=== PATIENT | male | born 1995 | race Caucasian/White ===

== ENCOUNTER 2018-06-09 12:11 | Emergency (ER) | payer BC, MEDICAID ==
[2018-06-09 13:13] VITALS: BP 131/80
[2018-06-09 14:04] LABS: Influenza A Molecular NEGATIVE (Negative); Influenza B Molecular NEGATIVE (Negative)
--- NOTE | 2018-06-09 15:47 | ED ---
Influenza-Like Illness - HPI Summary HPI Summary: 23-year-old male smoker presents with 4 days of cough, congestion, fever. He reports subjective fever and nonproductive cough. He has had body aches and chills. No other family members have been ill but one coworker had similar symptoms. He reports using a vape and denies any shortness of breath. He did not receive a flu vaccine. - History of Current Complaint Chief Complaint: UCGeneralIllness Time Seen by Provider: 06/09/18 14:33 Hx Obtained From: Patient - Allergy/Home Medications Allergies/Adverse Reactions: Allergies Allergy/AdvReac Type Severity Reaction Status Date / Time No Known Allergies Allergy Verified 06/09/18 13:14 PMH/Surg Hx/FS Hx/Imm Hx Previously Healthy: Yes Endocrine/Hematology History: Denies: Hx Diabetes, Hx Thyroid Disease Cardiovascular History: Denies: Hx Hypertension Respiratory History: Denies: Hx Asthma, Hx Chronic Obstructive Pulmonary Disease (COPD) GI History: Denies: Hx Ulcer Infectious Disease History: No Infectious Disease History: Denies: Hx Clostridium Difficile, Hx Hepatitis, Hx Human Immunodeficiency Virus (HIV), History Other Infectious Disease, Traveled Outside the in Last 30 Days - Family History Known Family History: Positive: Diabetes, Other - child had coxsackie virus last week - Social History Occupation: Employed Full-time Alcohol Use: Occasionally Substance Use Type: Reports: None Hx Tobacco Use: Yes - vape Smoking Status (MU): Former Smoker Type: Cigarettes, Smokeless Tobacco Amount Used/How Often: 1/2 PPD, 1/3 can per day Have You Smoked in the Last Year: Yes Review of Systems Positive: Fever, Chills Eyes: Negative Positive: Sore Throat, Nasal Discharge. Negative: Ear Ache Cardiovascular: Negative Positive: Cough. Negative: Shortness Of Breath Negative: Abdominal Pain, Vomiting All Other Systems Reviewed And Are Negative: Yes Physical Exam Triage Information Reviewed: Yes Vital Signs On Initial Exam: Initial Vitals Temp Pulse Resp BP Pulse Ox 98.8 F 82 18 131/80 100 06/09/18 13:10 06/09/18 13:10 06/09/18 13:10 06/09/18 13:10 06/09/18 13:10 Vital Signs Reviewed: Yes Appearance: Positive: Well-Appearing, No Pain Distress, Well-Nourished Skin: Positive: Warm, Skin Color Reflects Adequate Perfusion, Dry Eyes: Positive: EOMI ENT: Positive: Pharyngeal erythema, Nasal drainage, TMs normal. Negative: Tonsillar swelling, Tonsillar exudate, Sinus tenderness Neck: Positive: Supple, Nontender. Negative: Nuchal Rigidity Respiratory/Lung Sounds: Positive: Clear to Auscultation Cardiovascular: Positive: RRR Abdomen Description: Positive: Nontender, Soft Musculoskeletal: Positive: Normal, Strength/ROM Intact Neurological: Positive: Alert, Oriented to Person Place, Time Psychiatric: Positive: Normal AVPU Assessment: Alert Diagnostics - Vital Signs Vital Signs Temp Pulse Resp BP Pulse Ox 06/09/18 13:10 98.8 F 82 18 131/80 100 - Laboratory Lab Results: Lab Results 06/09/18 06/09/18 Range/Units 13:50 13:52 Influenza A (Rapid) Negative (Negative) Influenza B (Rapid) Negative (Negative) Group A Strep Rapid Negative (Negative) Lab Statement: Any lab studies that have been ordered have been reviewed, and results considered in the medical decision making process. Flu Symptom Course/Dx - Course Course Of Treatment: Nurse's notes reviewed. Patient without fever and mild upper respiratory symptoms at this point. Possibility of influenza a however not tested given he is outside the treatment window and has no significant comorbidity. Treat symptomatically, off work. - Diagnoses Differential Diagnosis/HQI/PQRI: Positive: Bronchitis, Influenza, Upper Respiratory Infection Provider Diagnoses: Upper respiratory infection Discharge - Sign-Out/Discharge Documenting (check all that apply): Patient Departure All imaging exams completed and their final reports reviewed: No Studies - Discharge Plan Condition: Improved Disposition: HOME Prescriptions: Dexamethasone TAB* [Decadron TAB*] 8 mg PO DAILY #8 tab Guaifenesin/Phenylephrine HCl [Chest-Sinus Congst Rlf Tablet] 1 each PO BID PRN #12 tablet PRN Reason: Congestion Forms: *Work Release Referrals: [facility] [Outside] [facility] [Outside] No Primary Care Phys,[facility] [Primary Care Provider] - Additional Instructions: Drink plenty of fluids. Humidifier. Cut back on Vape. Return with high fever, vomiting, trouble breathing or other concerns. - Billing Disposition and Condition Condition: IMPROVED Disposition: Home - Attestation Statements Document Initiated by Nati: No
== END 2018-06-09 15:30 | disposition home or self-care (01) ==
LOC: UCEAST 12:11
DX: J06.9 Acute upper respiratory infection, unspecified (principal); Z87.891 Personal history of nicotine dependence
CPT/HCPCS: 87651; 99212; G0463

== ENCOUNTER 2018-09-24 18:59 | Emergency (ER) | payer BC ==
[2018-09-24 19:07] VITALS: BP 138/88
[2018-09-24] MEDS ORDERED: Sulfamethox/Trimethoprim DS 800/160* TAB PO ONE (19:19)
--- NOTE | 2018-09-24 19:19 | UC ---
Skin Complaint HPI - HPI Summary HPI Summary: bug bite on left forearm erythema 10 cm and 6 cm of induration no fluctuate and drainage or streaking - History of Current Complaint Chief Complaint: UCSkin Time Seen by Provider: 09/24/18 19:13 Stated Complaint: SKIN COMPLAINT Hx Obtained From: Patient Onset/Duration: Gradual Onset, Lasting Days, Still Present Skin Exposure Onset/Duration: Days Ago Timing: Constant Pain Intensity: 3 Pain Scale Used: 0-10 Numeric Location: Discrete Character: Redness, Raised Aggravating Factor(s): Nothing Alleviating Factor(s): Nothing Associated Signs & Symptoms: Positive: Negative Related History: Insect Bite/Sting - Allergy/Home Medications Allergies/Adverse Reactions: Allergies Allergy/AdvReac Type Severity Reaction Status Date / Time No Known Allergies Allergy Verified 09/24/18 19:06 PMH/Surg Hx/FS Hx/Imm Hx Previously Healthy: Yes - Surgical History Surgical History: Yes Surgery Procedure, Year, and Place: COLONOSCOPY - Family History Known Family History: Positive: Diabetes, Other - child had coxsackie virus last week - Social History Occupation: Employed Full-time Lives: With Family Alcohol Use: Daily Alcohol Amount: 2 BEERS/NIGHT Substance Use Type: None Smoking Status (MU): Current Some Day Smoker Type: Cigarettes, Smokeless Tobacco Amount Used/How Often: 1/2 PPD, 1/3 can per day Have You Smoked in the Last Year: Yes When Did the Patient Quit Smoking/Using Tobacco: Chew at 15, smoking at 17 Review of Systems All Other Systems Reviewed And Are Negative: Yes Constitutional: Positive: Negative Skin: Positive: Rash Eyes: Positive: Negative ENT: Positive: Negative Respiratory: Positive: Negative Cardiovascular: Positive: Negative Gastrointestinal: Positive: Negative Genitourinary: Positive: Negative Motor: Positive: Negative Neurovascular: Positive: Negative Musculoskeletal: Positive: Negative Neurological: Positive: Negative Psychological: Positive: Negative Is Patient Immunocompromised?: Yes Physical Exam Triage Information Reviewed: Yes Appearance: Well-Appearing, No Pain Distress, Well-Nourished Vital Signs: Initial Vital Signs Temp 98.6 F 09/24/18 19:02 Pulse 105 09/24/18 19:02 Resp 18 09/24/18 19:02 BP 138/88 09/24/18 19:02 Pulse Ox 100 09/24/18 19:02 Vital Signs Reviewed: Yes Eye Exam: Normal Eyes: Positive: Conjunctiva Clear ENT Exam: Normal ENT: Positive: Normal ENT inspection, Hearing grossly normal Neck exam: Normal Neck: Positive: Supple, Nontender Respiratory Exam: Normal Respiratory: Positive: Chest non-tender, No respiratory distress, No accessory muscle use Cardiovascular Exam: Normal Cardiovascular: Positive: Pulses Normal, Brisk Capillary Refill Musculoskeletal Exam: Normal Musculoskeletal: Positive: Strength Intact, ROM Intact, No Edema Neurological Exam: Normal Neurological: Positive: Alert Psychological Exam: Normal Skin Exam: Other Skin: Positive: Other - 10 cm erythema 8 cm of induration no streaking Course/Dx - Course Course Of Treatment: warm soaks and compresses, bactrim DS bid for 10 days follow with [facility] or return as needed - Diagnoses Provider Diagnosis: Abscess of left arm Discharge - Sign-Out/Discharge Documenting (check all that apply): Patient Departure All imaging exams completed and their final reports reviewed: No Studies - Discharge Plan Condition: Stable Disposition: HOME Prescriptions: Sulfamethox/Trimethoprim DS* [Bactrim DS 800/160 TAB*] 1 tab PO BID #18 tab Patient Education Materials: Abscess (ED), Warm Compress or Soak (ED) Referrals: [facility] [Outside] - If Needed - Billing Disposition and Condition Condition: STABLE Disposition: Home
== END 2018-09-24 19:30 | disposition home or self-care (01) ==
LOC: UCEAST 18:59
DX: L02.414 Cutaneous abscess of left upper limb (principal); F17.210 Nicotine dependence, cigarettes, uncomplicated; F17.290 Nicotine dependence, other tobacco product, uncomplicated
CPT/HCPCS: 99212; A9270-GY; G0463